=== PATIENT | female | born 1970 | race African-American/Black ===

== ENCOUNTER 2016-12-28 22:35 | Emergency (ER) | payer OTHER ==
[2016-12-28 23:03] LABS: BASOPHIL 0.4 % (0-2); EOSINOPHIL 3.2 % (0-5); HCT 36.7 % (37.0-47.0); HGB 12.4 g/dl (12.5-16.0); LYMPHOCYTE 26.5 % (15-48); MCH 31.3 pg (25.0-31.0); MCHC 33.8 g/dL (32.0-36.0); MCV 92.7 fL (78.0-100.0); MONOCYTE 6.7 % (0-12); MPV 10.3 fL (6.0-9.5); NEUTROPHIL 63.2 % (41-80); PLT 330 K/uL (150-400); RBC 3.96 M/uL (4.20-5.40); RDW 12.9 % (11.5-14.0)
[2016-12-28 23:14] LABS: PROTHROMBIN TIME 12.8 SECONDS (11.7-14.0); PTT 24.9 SECONDS (23.2-31.4)
[2016-12-28 23:15] LABS: D-DIMER 0.45 ug/mLFEU (0.00-0.41)
[2016-12-28 23:23] LABS: CKMB 2.12 ng/mL (0.97-4.94); MYOGLOBIN 26 ng/mL (26-65); PRO-BNP 33 pg/mL (0-125); TROPONIN T < 0.010 ng/mL
[2016-12-28 23:24] LABS: BILIRUBIN - TOTAL 0.3 mg/dL (0.1-1.0); CREATININE 0.9 mg/dL (0.5-1.0); GLOBULIN (CALCULATION) 2.5 g/dL (2.2-4.2); MAGNESIUM 1.92 mg/dL (1.40-2.10); POTASSIUM 4.3 mmol/L (3.5-5.1); TOTAL PROTEIN 6.5 g/dL (6.4-8.3)
[2016-12-29 03:25] LABS: CKMB 1.92 ng/mL (0.97-4.94); TROPONIN T < 0.010 ng/mL
== END 2016-12-29 04:07 | disposition home or self-care (01) ==
LOC: FER 22:35
PROVIDERS: Emergency Medicine Emergency Medical Services
DX: R07.9 Chest pain, unspecified (principal); E86.9 Volume depletion, unspecified
CPT/HCPCS: 36415; 71010; 80053; 82150; 82550; 82553; 83690; 83735; 83874; 83880; 84484; 85025; 85379; 85610; 85730; 93005; C9113; J1170; J1885; J2270; J2405

== ENCOUNTER 2021-02-03 11:36 | Emergency (ER) | payer OTHER ==
[~2021-02-03 11:36] MED LIST: ELIQUIS5 MG PO; MEDROL 4MG DOSEP4 MG PO; NORCO 5-325 TA1 EACH PO; ROBAXIN750 MG PO; VITAMIN D5000 UNIT PO; ZOLOFT50 M1 PO
[2021-02-03] MEDS ORDERED: PREDNISONE 20MG20 MG PO (14:10)
[2021-02-03] MEDS ORDERED: NORCO 5-325 TA1 EACH PO (14:10)
== END 2021-02-03 14:56 | disposition home or self-care (01) ==
LOC: FER 11:36
DX: S39.012A Strain of muscle, fascia and tendon of lower back, initial encounter (principal); Z87.39 Personal history of other diseases of the musculoskeletal system and connective tissue; X58.XXXA Exposure to other specified factors, initial encounter; Y92.009 Unspecified place in unspecified non-institutional (private) residence as the place of occurrence of the external cause
CPT/HCPCS: 96372; 99283; J1100; J1885